=== PATIENT | female | born 1955 | race Caucasian/White ===

== ENCOUNTER 2021-12-09 05:15 | Day surgery (SDC) | payer MEDICARE, OTHER ==
[2021-12-03 11:27] LABS: BASOPHILS % (AUTO) 0.6 % (0-1); EOSINOPHILS # (AUTO) 0.1 X10'3 (0-0.9); EOSINOPHILS % (AUTO) 2.2 % (0-6); LYMPHOCYTES # (AUTO) 1.8 X10'3 (1.1-4.8); LYMPHOCYTES % (AUTO) 29.8 % (21-51); MEAN CORPUSCULAR HEMOGLOBIN 29.2 PG (27.0-31.0); MEAN CORPUSCULAR HGB CONC 33.7 g/dL (33.0-36.5); MEAN CORPUSCULAR VOLUME 86.7 FL (78-98); MEAN PLATELET VOLUME 7.6 FL (7.4-10.4); MONOCYTES # (AUTO) 0.6 X10'3 (0-0.9); MONOCYTES % (AUTO) 9.5 % (2-12); NEUTROPHILS # (AUTO) 3.6 X10'3 (1.8-7.7); NEUTROPHILS % (AUTO) 57.9 % (42-75); PRE OP HEMATOCRIT 41.2 % (35.0-45.0); PRE OP HEMOGLOBIN 13.9 g/dL (12.0-16.0); PRE OP PLATELET COUNT 398 X10'3 (140-440); RED BLOOD COUNT 4.75 X10'6 (4.20-5.60); RED CELL DISTRIBUTION WIDTH 12.4 % (11.5-14.5)
[2021-12-03 11:29] LABS: CLARITY,URINE CLEAR (Clear); COLOR,URINE YELLOW (Yellow); GLUCOSE, URINE NEGATIVE (Neg); KETONES,URINE NEGATIVE (Neg); LEUKOCYTE ESTERASE ,URINE NEGATIVE (Neg); NITRITES, URINE NEGATIVE (Neg); OCCULT BLOOD,URINE NEGATIVE (Neg); PROTEIN,URINE NEGATIVE (Neg); UROBILINOGEN,URINE 0.2 E.U/dL (0.2-1.0)
[2021-12-03 11:34] LABS: UA COLLECTION TYPE NON-SPECIFIED
[2021-12-03 11:43] LABS: ALBUMIN 3.6 G/DL (3.4-5.0); ALBUMIN/GLOBULIN RATIO 0.9 (1.1-1.5); ALKALINE PHOSPHATASE 96 IU/L (46-116); BLOOD UREA NITROGEN 16 MG/DL (7-18); BUN/CREATININE RATIO 16.2 (6.6-38.0); CHLORIDE 98 MMOL/L (99-107); CREATININE 0.99 MG/DL (0.40-0.90); PRE OP ALT 28 U/L (30-65); PRE OP ANION GAP 9 (8-16); PRE OP AST 15 U/L (10-37); PRE OP BILIRUB, TOTAL 0.3 MG/DL (0.0-1.0); PRE OP GLUCOSE 96 MG/DL (70-104); PRE OP POTASSIUM 3.5 MMOL/L (3.4-5.1); PRE OP SODIUM 131 MMOL/L (135-145); TOTAL CARBON DIOXIDE 24.4 MMOL/L (24-32); TOTAL PROTEIN 7.4 G/DL (6.4-8.2); eGFR 56 ML/MIN
[~2021-12-09] VITALS: Ht 165.1 cm; Wt 66.7 kg
[2021-12-09] VITALS (13 sets, daily range): BP systolic 100–154; BP diastolic 62–110
[~2021-12-09 05:15] MED LIST: BUPR300T86 PO; LEVO112T5 PO; TRIA1CAP88 PO; ringers solution, lacted 1,000 ML IV SCH
[2021-12-09] MEDS ORDERED: famotidine 20mg tablet PO ONE (05:30)
[2021-12-09] MEDS ORDERED: ceFAZolin inj. 2,000 MG in dextrose 5%-water 100 ML IV ONE (05:30)
[2021-12-09] MEDS ORDERED: BUPIVAcaine/PF 2.5 mg/ml (0.25%) 30ml vial ONE (07:06)
[2021-12-09] MEDS ORDERED: dexamethasone sod phosphate 10mg/ml inj ONE (07:37)
[2021-12-09] MEDS ORDERED: ketorolac trometh. 30mg/ml inj. ONE (07:37)
[2021-12-09] MEDS ORDERED: ondansetron/PF 4mg/2ml inj ONE (07:37)
[2021-12-09] MEDS ORDERED: propofol 10mg/ml 20ml vial IV ONE (07:37)
[2021-12-09] MEDS ORDERED: sevoflurane 250ml liquid IH ONE (07:37)
[2021-12-09] MEDS ORDERED: fentaNYL/PF 50MCG/1 ML 2ML syringe ONE (07:46)
[2021-12-09] MEDS ORDERED: midazolam 1 mg/ML 2ml injection ONE (07:47)
[2021-12-09] MEDS ORDERED: LIDOcaine 2% (20mg/ml) 5ml vial ONE (07:56)
[2021-12-09] MEDS ORDERED: vancomycin 1,000mg inj ONE (07:56)
[2021-12-09] MEDS ORDERED: propofol inj 20 ML IV ONE (07:56)
[2021-12-09] MEDS ORDERED: mupirocin 2% ointment 22GM ONE (08:32)
[2021-12-09] MEDS ORDERED: morphine 4 MG/ML inj SYRINge IV PRN (08:40)
[2021-12-09] MEDS ORDERED: morphine 2 MG/ML inj. syringe IV PRN (08:40)
[2021-12-09] MEDS ORDERED: ondansetron/PF 4mg/2ml inj IV PRN (08:40)
[2021-12-09] MEDS ORDERED: meperidine/PF 25mg/ml syringe IV PRN ×2 (08:40)
[2021-12-09] MEDS ORDERED: ringers solution, lacted 1,000 ML IV SCH (08:40)
[2021-12-09] MEDS ORDERED: proCHLORperazine 10 MG/2 ml inj IV PRN (08:40)
--- NOTE | 2021-12-09 09:08 | NUR ---
Received from OR via [facility], accompanied by Anesthesiologist and report given by [facility] Anesthesiologist. PATIENT WAKING UP, DENIES PAIN, V/S WNL, PIV 20G RUE, ISLAND DRESSING CDI TO ABDOMEN. Addendum: 12/09/21 at 0923 by Marc Carl RN Amended: Links added.
[2021-12-09] MEDS: meperidine/PF 25mg/ml syringe IV PRN ×3 (09:14→10:01)
--- NOTE | 2021-12-09 10:53 | NUR ---
ALL DISCHARGE CRITERIA HAS BEEN MET. VSS, PAIN AT A TOLERABLE LEVEL, ABLE TO SAFELY AMBULATE AND TRANSFER SELF. IV TAKEN OUT WITHOUT ANY COMPLICATIONS. ALL DISCHARGE INSTRUCTIONS COVERED WITH PATIENT AND ALL QUESTIONS ANSWERED. PATIENT TAKEN OUT VIA WHEELCHAIR WITH ALL BELONGINGS TO PERSONAL VEHICLE WHERE FAMILY DROVE PATIENT HOME. Addendum: 12/09/21 at 1110 by Marc Carl RN Amended: Links added.
== END 2021-12-09 10:53 | disposition home or self-care (01) ==
LOC: PAS 05:15
PROVIDERS: ATTEND Surgery
DX: K43.2 Incisional hernia without obstruction or gangrene (principal); E03.9 Hypothyroidism, unspecified; Z82.49 Family history of ischemic heart disease and other diseases of the circulatory system; Z98.890 Other specified postprocedural states; Z87.891 Personal history of nicotine dependence; Z79.899 Other long term (current) drug therapy; Z90.49 Acquired absence of other specified parts of digestive tract
CPT/HCPCS: 36415; 49560; 80053; 81003; 82948; 85025; 87811; 93005; J0690; J0780; J1100; J1885; J2175; J2250; J2270; J2405; J2704; J3010; J3370; J3490; J7030; J7060; J7120; Z7506; Z7508; Z7512; A4215; A4618; A7000

== ENCOUNTER 2022-05-13 10:20 | Emergency (ER) | payer MEDICARE, OTHER ==
[~2022-05-13] VITALS: Ht 165.1 cm; Wt 65.9 kg
[~2022-05-13 10:20] MED LIST changes: -ringers solution, lacted 1,000 ML IV SCH
[2022-05-13 10:36] LABS: BASOPHILS # (AUTO) 0.1 X10'3 (0-0.2); BASOPHILS % (AUTO) 0.8 % (0-1); EOSINOPHILS # (AUTO) 0.3 X10'3 (0-0.9); HEMATOCRIT 40.1 % (35.0-45.0); HEMOGLOBIN 13.5 g/dl (12.0-16.0); LYMPHOCYTES # (AUTO) 1.9 X10'3 (1.1-4.8); LYMPHOCYTES % (AUTO) 28.1 % (21-51); MEAN CORPUSCULAR HEMOGLOBIN 30.5 PG (27.0-31.0); MEAN CORPUSCULAR HGB CONC 33.7 g/dL (33.0-36.5); MEAN CORPUSCULAR VOLUME 90.4 FL (78-98); MEAN PLATELET VOLUME 6.9 FL (7.4-10.4); MONOCYTES # (AUTO) 0.6 X10'3 (0-0.9); NEUTROPHILS # (AUTO) 3.8 X10'3 (1.8-7.7); NEUTROPHILS % (AUTO) 58.1 % (42-75); PLATELET COUNT 405 X10'3 (140-440); RED BLOOD COUNT 4.44 X10'6 (4.20-5.60); RED CELL DISTRIBUTION WIDTH 13.6 % (11.5-14.5); WHITE BLOOD COUNT 6.6 X10'3 (4.5-11.0)
[2022-05-13 10:54] LABS: ALANINE AMINOTRANSFERASE 22 U/L (12-78); ALBUMIN 3.9 G/DL (3.4-5.0); ALBUMIN/GLOBULIN RATIO 1.1 (1.1-1.5); ALKALINE PHOSPHATASE 87 IU/L (46-116); ANION GAP 10 (8-16); ASPARTATE AMINO TRANSFERASE 13 U/L (10-37); BILIRUBIN,TOTAL 0.3 MG/DL (0.1-1.0); BLOOD UREA NITROGEN 15 MG/DL (7-18); BUN/CREATININE RATIO 17.2 (6.6-38.0); CALCIUM 8.9 MG/DL (8.5-10.1); CHLORIDE 99 MMOL/L (99-107); CREATININE 0.87 MG/DL (0.40-0.90); GLUCOSE 100 MG/DL (70-104); MAGNESIUM 1.9 MG/DL (1.5-2.4); POTASSIUM 3.6 MMOL/L (3.5-5.1); SODIUM 132 MMOL/L (135-145); TOTAL CARBON DIOXIDE 23.4 MMOL/L (24-32); TOTAL PROTEIN 7.4 G/DL (6.4-8.2); eGFR 65 ML/MIN
[2022-05-13 11:09] LABS: APTT 27 SECONDS (22-32)
[2022-05-13 13:35] VITALS: BP 148/93
== END 2022-05-13 13:40 | disposition home or self-care (01) ==
LOC: ER 10:20
DX: R20.0 Anesthesia of skin (principal); M79.602 Pain in left arm; M79.605 Pain in left leg; Z79.899 Other long term (current) drug therapy
CPT/HCPCS: 36415; 70450; 71045; 80053; 83735; 83880; 84484; 85025; 85610; 85730; 93005; 99285